=== PATIENT | female | born 1945 | race Caucasian/White ===

== ENCOUNTER 2018-12-19 11:31 | Emergency (ER) | payer OTHER, MEDICAID ==
[~2018-12-19] VITALS: Ht 152.4 cm; Wt 80.7 kg
[2018-12-19 11:55] VITALS: Ht 152.4 cm; Wt 80.7 kg
[2018-12-19 14:33] VITALS: BP 134/80
== END 2018-12-19 14:33 | disposition home or self-care (01) ==
LOC: ED 11:31
DX: J02.8 Acute pharyngitis due to other specified organisms (principal); I10 Essential (primary) hypertension
CPT/HCPCS: J1100